=== PATIENT | female | born 1950 | race Caucasian/White ===

== ENCOUNTER → 2016-08-04 | Outpatient (CLI) | payer BC ==
[~2016-08-04] MED LIST: ALBU18002 INH; CALC600T9 PO; CLR10 PO; CZR50 PO; DICL50TA3 PO; DiphenhydrAMINE HCL 50 MG/ML VIAL ONE; FEXO1TAB49 PO; FLUT0.15 NAE; MULT-506 PO; OXYC-57 PO; SIMV10TA2 PO
--- NOTE | 2016-08-04 16:54 | DIAGNOSTIC IMAGING REPORT ---
CHEST 2 VIEWS ROUTINE CLINICAL HISTORY: Dyspnea. COMPARISON STUDY: Chest radiograph October 09, 2012. FINDINGS: Lung volumes are normal. Lungs are clear. There is no pneumothorax or pleural effusion. Cardiac size is normal. Mediastinal contours are normal. IMPRESSION: No acute cardiopulmonary findings. Electronically signed by: Marcus Hoyos M.D. 08/04/2016 4:52 PM Dictated Date/Time: 08/04/2016 4:51 PM
== END | disposition home or self-care (01) ==
LOC: C.RAD 16:14
PROVIDERS: ATTEND Nurse Practitioner Family
DX: R06.00 Dyspnea, unspecified (principal)

== ENCOUNTER → 2016-10-27 | Day surgery (SDC) | payer BC ==
[2016-10-13 10:57] VITALS: Ht 160 cm; Wt 72.7 kg
[~2016-10-27] VITALS: Ht 160 cm; Wt 72.7 kg
[~2016-10-27] MED LIST changes: +ATROPINE SULFATE 0.1 MG/ML 5ML SYR IV PRN; +BUPIVACAINE/EPINEPHRINE 0.5% MPF 1:200,000 30 ML VIAL ONE; +CEFAZOLIN 1000MG/55 ML D5W IV SCH; -CLR10 PO; +DEXAMETHASONE SOD INJ 4 MG/ML VIAL ONE; -DiphenhydrAMINE HCL 50 MG/ML VIAL ONE; +EpHEDrine SULFATE INJ 50 MG/ML AMP IV PRN; +EpHEDrine SULFATE INJ 50 MG/ML AMP ONE; +FENTANYL CITRATE INJ 50 MCG/1 ML 2 ML VIAL ONE; +HYDROmorphone INJ 2 MG/ML SYR/VIAL IV PRN; +LACTATED RINGER'S 1000ML 1,000 ML IV SCH; +LIDOCAINE HCL 2% 2 ML VIAL (20MG/ML) ONE; +MIDAZOLAM HCL 1 MG/ML 2ML VIAL ONE; +ONDANSETRON INJ 2 MG/ML 2 ML VIAL IV PRN; +ONDANSETRON INJ 2 MG/ML 2 ML VIAL ONE; +OXYCODONE/ACETAMINOPHEN 5-325 TAB PO PRN; +PHENYLEPHRINE 100MCG/ML 5ML SYR IV PRN; +PROPOFOL IV EMULSION 10 MG/ML 20 ML VIAL IV ONE; +SODIUM CHLORIDE 0.9% 1000ML 1,000 ML IV SCH; +SODIUM CHLORIDE 0.9% INJ 10 ML VIAL ONE
--- NOTE | 2016-10-27 10:59 | History & Physical Bridge - SC ---
H&P Re-Evaluation Bridge Note: I have examined the patient, reviewed the History & Physical and in the interval since the performance of the History & Physical I have noted the following changes of clinical significance: No changes noted
--- NOTE | 2016-10-27 12:15 | Discharge Instructions-SurgCtr ---
Discharge Instructions Date of Service Oct 27, 2016. Visit Reason for Visit: Right Thumb Osteoarthritis Of Cmc Joint Discharge Discharge Diagnosis / Problem: right thumb cmc joint arthritis Discharge Goals Goal(s): Decrease discomfort, Therapeutic intervention Medications Stopped Medications Name(s): diclofenac, last dose 1 week ago Activity Recommendations Activity Limitations: per Instructions/Follow-up section Anesthesia . Post Anesthesia Instructions: If you have had General Anesthesia or IV Sedation: * Do not drive today. * Resume driving when surgeon permits. * Do not make important decisions or sign legal documents today. * Call surgeon for: 1. Temperature elevations greater than 101 degrees F. 2. Uncontrollable pain. 3. Excessive bleeding. 4. Persistent nausea and vomiting. 5. Medication intolerance (nausea, vomiting or rash). * For nausea and vomiting use only clear liquids such as: tea, soda, bouillon until nausea subsides, then gradually increase diet as tolerated. * If you have any concerns or questions, call your surgeon's office. If physician is unavailable and it is an emergency, call 911 or go to the nearest emergency room. . Instructions / Follow-Up Instructions / Follow-Up MEDICATIONS: * Resume previous medications unless instructed otherwise by your surgeon. * Always take pain medication on a full stomach or with food to avoid upset stomach. * Do not drink alcohol or drive while taking narcotics. * Tylenol may be taken if narcotic not needed. SPECIAL CARE INSTRUCTIONS: __ None _x_ Keep extremity elevated and iced x 48 hours; apply ice 20-30 minutes 8-10 times/day. May remove at night. _x_ Sling __24 hrs/day __ Remove at night __ Shoulder Immobilizer __ 24 hrs/day __ Remove at night _x_ Dressing _x_ Maintain until seen in office, may shower with plastic over site __ Remove dressings in 24-48 hours and then may shower __ Cover incisions with band-aids after showering __ Do not remove steri-strips Call physician if chills or temperature rises above 102 degrees or pain unrelieved by prescribed pain medications at . . follow up in 2 weeks Diet Recommendations Home Diet: resume previous diet Procedures Procedures Performed: Right Thumb Carpometocarpal Arthroplasty Pending Studies Studies pending at discharge: no Medical Emergencies . Who to Call and When: Medical Emergencies: If at any time you feel your situation is an emergency, please call 911 immediately. . Non-Emergent Contact Non-Emergency issues call your: Surgeon . . "Provider Documentation" section prepared by Anil Cisneros.
--- NOTE | 2016-10-27 12:16 | [facility] Post Operative Brief Note ---
Immediate Operative Summary Operative Date Oct 27, 2016. Pre-Operative Diagnosis Right thumb carpometocarpal arthritis Post-Operative Diagnosis Same as preop Procedure(s) Performed Right Thumb Carpometocarpal Arthroplasty Surgeon Dr. Richards [employer] Estimator Surgeon(s) Salomon Cisneros PA-C Estimated Blood Loss 5 mL Findings Right Thumb CMC DJD Specimens None Anesthesia General Complication(s) None Disposition Recovery Room / PACU
--- NOTE | 2016-10-27 12:29 | Anesthesia Progress Nt - [facility] ---
Anesthesia Post Op Note Date & Time Oct 27, 2016 at 12:28 Vital Signs Pain Intensity: 0 Vital Signs Past 12 Hours Date Time Temp Pulse Resp B/P Pulse Ox O2 Delivery O2 Flow Rate FiO2 10/27/16 12:20 36.2 102 16 136/81 100 Mask 6 10/27/16 10:05 37 96 16 165/88 96 Room Air Notes Mental Status: alert / awake / arousable, participated in evaluation Pt Amnestic to Procedure: Yes Nausea / Vomiting: adequately controlled Pain: adequately controlled Airway Patency, RR, SpO2: stable & adequate BP & HR: stable & adequate Hydration State: stable & adequate Anesthetic Complications: no major complications apparent
[2016-10-27 13:10] VITALS: TEMP 36.6
--- NOTE | 2016-10-27 13:20 | OPERATIVE REPORT ---
DATE OF OPERATION: 10/27/2016 SURGEON: Lai Richards MD CREDIT SUPPORT COUNSELOR: JUAN A Reynaga PREOPERATIVE DIAGNOSIS: Right first CMC joint arthritis. POSTOPERATIVE DIAGNOSIS: Same. PROCEDURE PERFORMED: Right first CMC joint suspension arthroplasty. COMPLICATIONS: None. ESTIMATED BLOOD LOSS: Minimal. TOURNIQUET TIME: 20 minutes at 250 mmHg. ANESTHESIA: General. SPECIMENS: None. OPERATIVE INDICATIONS: The patient is a 66-year-old female who has had a several year history of right thumb pain and discomfort. She underwent a left thumb CMC arthroplasty about 4 years ago and has done well from this. She had been through extensive conservative treatment on that side without relief. She elected just to proceed with right CMC joint suspension arthroplasty. OPERATIVE PROCEDURE: The patient was taken to the operating room, identified and placed on the operating table in the supine position. All contact areas were appropriately padded. IV antibiotics were provided by the anesthesia team. A general anesthetic was implemented by anesthesia team. Right upper extremity tourniquet was then placed. The right arm was then prepped and draped in the usual sterile fashion. The right arm was elevated and exsanguinated with Esmarch and tourniquet was placed at 250 mmHg. About a 4-cm incision was made over the base of the first metacarpal and over the trapezium directly over the first dorsal compartment. Blunt dissection was carried out through subcutaneous tissues, down to the dorsal hand fascia. Branches of the superficial radial nerve were protected throughout the case. A longitudinal incision was then made between the abductor pollicis longus and extensor pollicis brevis tendon. This was a full-thickness incision made directly down through the joint capsule. The joint capsule was then stripped off the trapezium and the base of the first metacarpal as well. I dissected circumferentially around the trapezium. The trapezium was then sectioned in 4 pieces. We used a saw and then completed with the use of an osteotome. The trapezium was then removed in a piecemeal fashion, taking great care to protect the volar ligaments. Once this was complete, x-ray was brought in. I verified that the bone was completely gone. I then irrigated the wound and injected locally with 30 mL of 0.5% Marcaine with epinephrine. A 20 mL went into the tissues and then just irrigated with 10 additional mL. The longitudinal traction was then applied to the thumb and the capsule was then closed with 2-0 Vicryl suture in a [id number] fashion. The tourniquet was then let down for a tourniquet time of 28 minutes. Hemostasis was assured with use of electrocautery. The wound was once again irrigated. The subcutaneous tissues were then closed with 3-0 Dexon suture in a buried interrupted fashion. Skin was closed with 4-0 nylon suture in a horizontal mattress fashion. The thumb was then cleaned and dried. I then applied some longitudinal traction to the thumb and maximally extended it. I then fixed it to the remainder of the carpus with a single 1.6-mm K wire. This was done under fluoroscopy. The K wire was then cut short and Jergens pin balls placed in the end of it. A sterile dressing with Xeroform, 4 x 4s, sterile cast padding and a thumb spica splint were applied followed by a sling. The patient was then brought out of general anesthesia and transferred to the recovery room in stable condition. The patient tolerated the procedure well with no complications. All needle and sponge counts were correct at the end of the operation. I attest to the content of the Intraoperative Record and any orders documented therein. Any exceptio ns are noted below.
[2016-10-27 13:30] VITALS: BP 140/81; PULSE 95; O2SAT 98
== END | disposition home or self-care (01) ==
LOC: X.SURG 09:49
PROVIDERS: ATTEND Orthopaedic Surgery Sports Medicine
DX: M18.11 Unilateral primary osteoarthritis of first carpometacarpal joint, right hand (principal); I10 Essential (primary) hypertension; J45.909 Unspecified asthma, uncomplicated

== ENCOUNTER → 2017-08-04 | Outpatient (CLI) | payer BC ==
[~2017-08-04] MED LIST changes: -ATROPINE SULFATE 0.1 MG/ML 5ML SYR IV PRN; -BUPIVACAINE/EPINEPHRINE 0.5% MPF 1:200,000 30 ML VIAL ONE; -CEFAZOLIN 1000MG/55 ML D5W IV SCH; -DEXAMETHASONE SOD INJ 4 MG/ML VIAL ONE; -EpHEDrine SULFATE INJ 50 MG/ML AMP IV PRN; -EpHEDrine SULFATE INJ 50 MG/ML AMP ONE; -FENTANYL CITRATE INJ 50 MCG/1 ML 2 ML VIAL ONE; -HYDROmorphone INJ 2 MG/ML SYR/VIAL IV PRN; -LACTATED RINGER'S 1000ML 1,000 ML IV SCH; -LIDOCAINE HCL 2% 2 ML VIAL (20MG/ML) ONE; -MIDAZOLAM HCL 1 MG/ML 2ML VIAL ONE; -ONDANSETRON INJ 2 MG/ML 2 ML VIAL IV PRN; -ONDANSETRON INJ 2 MG/ML 2 ML VIAL ONE; -OXYC-57 PO; -OXYCODONE/ACETAMINOPHEN 5-325 TAB PO PRN; -PHENYLEPHRINE 100MCG/ML 5ML SYR IV PRN; -PROPOFOL IV EMULSION 10 MG/ML 20 ML VIAL IV ONE; -SODIUM CHLORIDE 0.9% 1000ML 1,000 ML IV SCH; -SODIUM CHLORIDE 0.9% INJ 10 ML VIAL ONE
== END | disposition home or self-care (01) ==
LOC: C.MAMM 15:17
PROVIDERS: ATTEND Nurse Practitioner Family
DX: M85.88 Other specified disorders of bone density and structure, other site (principal); M85.852 Other specified disorders of bone density and structure, left thigh; M85.851 Other specified disorders of bone density and structure, right thigh

== ENCOUNTER 2017-09-05 16:34 | Emergency (ER) | payer BC ==
[~2017-09-05] VITALS: Ht 160 cm; Wt 75.3 kg
[2017-09-05 16:39] VITALS: TEMP 37.2; Ht 160 cm; Wt 75.3 kg
[2017-09-05] MEDS ORDERED: SODIUM CHLORIDE 0.9% 500ML 500 ML IV STA (17:40)
[2017-09-05] MEDS ORDERED: ALBUTEROL 0.5% NEB SOLN 2.5 MG/0.5 ML VIAL INH STA (17:40)
--- NOTE | 2017-09-05 17:43 | EMERGENCY ROOM VISIT NOTE ---
History Report prepared by Deondre: Manuel Weaver Under the Supervision of: Dr. Elio Rush M.D. First contact with patient: 17:33 Chief Complaint: SHORTNESS OF BREATH Stated Complaint: FATIGUE, SHORT OF BREATH, COUGH Nursing Triage Summary: Pt states sent by PCP for eval of fatigue, SOB, elevated bp - mid Jul had Losartan increased from 50mg to 100mg. Reports intermittent h/a, dry mouth. States "at times" feel heart beat fast. Denies cp "other than from coughing". Intermittent dizziness/lightheaded. History of Present Illness The patient is a 66 year old female who presents to the Emergency Room with complaints of worsening fatigue over the past month. The patient states that she was recommended to come here by her primary care physician for evaluation of her fatigue. She notes that she started having cold symptoms at the end of June, which have been coming and going. She says that she has had had a waxing and waning cough with intermittent shortness of breath. The patient states that her blood pressure had been going up last month, and was having fatigue and an elevated blood pressure, so she was seen by her primary care physician and had her Losartan increased from 50 mg to 100 mg. The patient states that her fatigue has been worsening, and she still has the cough but that has gotten a bit better. She notes that her blood pressure has still been high. The patient denies any abdominal pain. She also denies being around any animals that are outside all the time. She is a non-smoker. Source of History: patient, family Onset: Over past month Position: other (global - fatigue) Timing: worsening Associated Symptoms: + cough, + SOB, No abdominal pain Note: Elevated blood pressure. Review of Systems See HPI for pertinent positives & negatives. A total of 10 systems reviewed and were otherwise negative. Past Medical & Surgical Medical Problems: (1) HTN (hypertension) Family History No pertinent family history Social History Smoking Status: Never Smoker Smokeless Tobacco Use: No Marital Status: single Occupation Status: retired Current/Historical Medications Scheduled Calcium Carbonate-Vitamin D (Calcium + D), 1 TAB PO QAM Diclofenac (Voltaren), 50 MG PO BID Losartan Potassium (Cozaar), 100 MG PO DAILY Multivitamin (Multivitamin), 1 TAB PO QAM Simvastatin (Zocor), 10 MG PO QPM Scheduled PRN Fexofenadine Hcl (Ilana Allergy), 1 TAB PO DAILY PRN for PRN Fluticasone Propionate (Nasal) (Flonase Allergy Relief), 2 SPRAY DEYSI DAILY PRN for PRN Allergies Coded Allergies: Beta Adrenergic Blockers (Unverified Adverse Reaction, Mild, HEADACHE, 07/11) Physical Exam Vital Signs Date Time Temp Pulse Resp B/P (MAP) Pulse Ox O2 Delivery O2 Flow Rate FiO2 09/05/17 20:07 81 18 168/96 98 09/05/17 19:48 90 18 164/110 96 Room Air 09/05/17 18:28 96 09/05/17 18:21 79 18 162/89 96 Room Air 09/05/17 18:15 Room Air 09/05/17 18:15 Room Air 09/05/17 16:39 37.2 122 18 163/96 97 Room Air Physical Exam GENERAL: Patient is a healthy-appearing well-nourished 66 year old female. HEAD: Normocephalic atraumatic EYES: Ocular movements intact pupils equal and react to light OROPHARYNX mucous membranes are moist no exudates present no erythema or edema present NECK: Supple no nuchal rigidity CHEST: Good equal expansion LUNGS: Clear and equal to auscultation CARDIAC: Normal S1 and S2 ABDOMEN: Soft nontender no guarding BACK: No CVA tenderness EXTREMITIES: No pain upon palpation normal muscle strength in all groups no clubbing cyanosis or edema NEURO: Patient is following commands and answering questions appropriately. Alert and oriented x3 Cranial Nerves 2-12 grossly intact Medical Decision & Procedures ER Provider Diagnostic Interpretation: Radiology results as stated below per my review and radiologist interpretation: CHEST ONE VIEW PORTABLE CLINICAL HISTORY: Pt c/o SOB history COMPARISON STUDY: 08/04/2016 FINDINGS: The bones soft tissues and hemidiaphragms are normal. The cardiomediastinal silhouette is normal. The lungs are clear. The pulmonary vasculature is normal. IMPRESSION: Negative chest. The above report was generated using voice recognition software. It may contain grammatical, syntax or spelling errors. Electronically signed by: Miller Corbin M.D. 09/05/2017 6:02 PM Dictated Date/Time: 09/05/2017 6:01 PM (CHEST FOR PE) ANGIO WITH CT DOSE: 330.87 mGy.cm HISTORY: 66 years-old Female presents with acute shortness of breath TECHNIQUE: Multiple CTA images of the chest were obtained after the intravenous administration of 95 ml Optiray 320. Coronal and sagittal MIPS were obtained from the axial data set and were submitted for review. A dose lowering technique was utilized adhering to the principles of ALARA. COMPARISON: Chest radiograph of same day, CTA 12/24/2014 FINDINGS: CTA: Heart is normal in size without pericardial effusion. Thoracic aorta is normal in both course and caliber without aneurysm or dissection. Atheromatous plaque at the origin of the left subclavian artery causes 50% luminal narrowing, image 211 series 4. The pulmonary arterial tree is opacified to level of the proximal subsegmental branches and demonstrates no focal filling defects to suggest urinary thromboembolic disease. CT CHEST: No dominant thyroid nodule identified. No pathologically enlarged lymph nodes by CT size criteria. Graft no pneumothorax or pleural effusion. Minimal dependent bibasilar atelectasis. There are no suspicious pulmonary nodules or masses identified. The central airways are patent. There is mild mucous plugging involving bronchi of the right lower lobe as seen on image 98 series 4. No acute abnormality identified within the imaged upper abdomen. Soft tissues are unremarkable. Bones appear intact. Mild multilevel endplate spurring of the spine. IMPRESSION: 1. No acute intrathoracic abnormality identified, specifically no acute aortic pathology or evidence of pulmonary thromboembolic disease. 2. 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 3. No pathologic adenopathy or focal airspace consolidation identified. The above report was generated using voice recognition software. It may contain grammatical, syntax or spelling errors. Electronically signed by: Evan Lucas M.D. 09/05/2017 7:25 PM Dictated Date/Time: 09/05/2017 7:18 PM Laboratory Results 09/05/17 18:08 Red Blood Count 4.79, Mean Corpuscular Volume 88.5, Mean Corpuscular Hemoglobin 30.9, Mean Corpuscular Hemoglobin Concent 34.9, Mean Platelet Volume 9.6, Neutrophils (%) (Auto) 55.7, Lymphocytes (%) (Auto) 33.8, Monocytes (%) (Auto) 8.4, Eosinophils (%) (Auto) 1.3, Basophils (%) (Auto) 0.4, Neutrophils # (Auto) 2.58, Lymphocytes # (Auto) 1.57, Monocytes # (Auto) 0.39, Eosinophils # (Auto) 0.06, Basophils # (Auto) 0.02 09/05/17 18:08 Test 09/05/17 18:08 09/05/17 18:13 White Blood Count 4.64 K/uL (4.8-10.8) Red Blood Count 4.79 M/uL (4.2-5.4) Hemoglobin 14.8 g/dL (12.0-16.0) Hematocrit 42.4 % (37-47) Mean Corpuscular Volume 88.5 fL (80-100) Mean Corpuscular Hemoglobin 30.9 pg (25-34) Mean Corpuscular Hemoglobin Concent 34.9 g/dl (32-36) Platelet Count 218 K/uL (130-400) Mean Platelet Volume 9.6 fL (7.4-10.4) Neutrophils (%) (Auto) 55.7 % Lymphocytes (%) (Auto) 33.8 % Monocytes (%) (Auto) 8.4 % Eosinophils (%) (Auto) 1.3 % Basophils (%) (Auto) 0.4 % Neutrophils # (Auto) 2.58 K/uL (1.4-6.5) Lymphocytes # (Auto) 1.57 K/uL (1.2-3.4) Monocytes # (Auto) 0.39 K/uL (0.11-0.59) Eosinophils # (Auto) 0.06 K/uL (0-0.5) Basophils # (Auto) 0.02 K/uL (0-0.2) RDW Standard Deviation 40.4 fL (36.4-46.3) RDW Coefficient of Variation 12.6 % (11.5-14.5) Immature Granulocyte % (Auto) 0.4 % Immature Granulocyte # (Auto) 0.02 K/uL (0.00-0.02) Anion Gap 8.0 mmol/L (3-11) Est Creatinine Clear Calc Drug Dose 58.3 ml/min Estimated GFR () 75.7 Estimated GFR (Non- 65.3 BUN/Creatinine Ratio 20.5 (10-20) Calcium Level 8.8 mg/dl (8.5-10.1) Total Bilirubin 0.6 mg/dl (0.2-1) Aspartate Amino Transf (AST/SGOT) 27 U/L (15-37) Alanine Aminotransferase (ALT/SGPT) 59 U/L (12-78) Alkaline Phosphatase 154 U/L (45-117) Total Creatine Kinase 83 U/L (26-192) Creatine Kinase MB 0.7 ng/ml (0.5-3.6) Creatine Kinase MB Ratio 0.8 (0-3.0) Troponin I < 0.015 ng/ml (0-0.045) Total Protein 7.5 gm/dl (6.4-8.2) Albumin 3.8 gm/dl (3.4-5.0) Globulin 3.7 gm/dl (2.5-4.0) Albumin/Globulin Ratio 1.0 (0.9-2) Thyroid Stimulating Hormone (TSH) 1.580 uIu/ml (0.300-4.500) Lyme Disease IgG Antibody NEG (NEG) Lyme Disease IgM Antibody NEG (NEG) Monoscreen NEG (NEG) Bedside D-Dimer > 450 ng/mlFEU (0-450) Labs reviewed by ED physician. Medications Administered Medications (Trade) Dose Ordered Sig/Tiffany Route Start Time Stop Time Status Last Admin Dose Admin Albuterol Sulfate (Ventolin 0.5% 2.5MG/0.5ML Neb) 2.5 mg NOW STAT INH 09/05/17 17:40 09/05/17 17:45 DC 09/05/17 18:16 2.5 MG Sodium Chloride 500 ml @ 999 mls/hr Q31M STAT IV 09/05/17 17:40 09/05/17 18:10 DC 09/05/17 18:20 999 MLS/HR Albuterol (Ventolin Hfa Inhaler) 2 puffs NOW STAT INH 09/05/17 19:52 09/05/17 19:53 DC 09/05/17 20:06 2 PUFFS ECG Indication: SOB/dyspnea Rate (beats per minute): 108 Rhythm: sinus tachycardia Findings: other (QT 334, QTC 447, normal axis) Change: Patient's electrocardiogram per my interpretation. ED Course 1733: Past medical records reviewed. The patient was evaluated in room C10. A complete history and physical examination was performed. 1740: Ordered NSS 500 ml @ 999 mls/hr IV, Ventolin 0.5% 2.5MG/0.5ML Neb 2.5 mg INH. 1950: Upon reexamination the patient is resting comfortably. I discussed results and treatment plan with the patient. She verbalizes agreement and understanding. The patient is ready for discharge. 1951: Ordered Ventolin Hfa Inhaler 2 puffs INH. Medical Decision Differential diagnosis: Etiologies such as metabolic, infection, hypo/hyperglycemia, electrolyte abnormalities, cardiac sources, intracerebral event, toxicologic, neurologic, as well as others were entertained. This is a 66-year-old female who presents emergency department complaining of weakness. An EKG was obtained along with CBC renal profile troponin CK-MB as well as thyroid. The patient does have an elevation in her d-dimer therefore she was sent for CAT scan of the chest. The patient was found to be somewhat hypokalemic. She was given potassium here in the emergency department. She was also given breathing treatments. I do feel that the patient is well enough to be discharged home for follow-up with her primary care physician as I do not see any acute process. Patient was in agreement with the treatment plan. Medication Reconcilliation Current Medication List: was personally reviewed by me Blood Pressure Screening Patient's blood pressure: Elevated blood pressure Blood pressure disposition: Referred to PCP Impression Primary Impression: Weakness Scribe Attestation The scribe's documentation has been prepared under my direction and personally reviewed by me in its entirety. I confirm that the note above accurately reflects all work, treatment, procedures, and medical decision making performed by me. Departure Information Dispostion Home / Self-Care Referrals Dixie Cordova, C.R.N.P. (PCP) Nba Holt, DO Patient Instructions ED Cough Chronic Cause Unkn, ED Weakness [facility], [facility] Additional Instructions Follow up with Dr Holt's office Use inhaler twice every 6 hours for cough You have been examined and treated today on an emergency basis only. This is not a substitute for, or an effort to provide, complete comprehensive medical care. It is impossible to recognize and treat all injuries or illnesses in a single emergency department visit. It is therefore important that you follow up closely with your PCP. Call as soon as possible for an appointment. Thank you for your time and consideration. I look forward to speaking with you again soon. Please don't hesitate to call us if you have any questions.
--- NOTE | 2017-09-05 18:03 | DIAGNOSTIC IMAGING REPORT ---
CHEST ONE VIEW PORTABLE CLINICAL HISTORY: Pt c/o SOB history COMPARISON STUDY: 08/04/2016 FINDINGS: The bones soft tissues and hemidiaphragms are normal. The cardiomediastinal silhouette is normal. The lungs are clear. The pulmonary vasculature is normal. IMPRESSION: Negative chest. The above report was generated using voice recognition software. It may contain grammatical, syntax or spelling errors. Electronically signed by: Miller Corbin M.D. 09/05/2017 6:02 PM Dictated Date/Time: 09/05/2017 6:01 PM
[2017-09-05] MEDS ORDERED: LOSA1TAB38 PO (18:17)
[2017-09-05 18:20] LABS: BASO % 0.4 %; BASO ABS # 0.02 K/uL (0-0.2); EOS % 1.3 %; EOS ABS # 0.06 K/uL (0-0.5); HEMATOCRIT 42.4 % (37-47); HEMOGLOBIN 14.8 g/dL (12.0-16.0); IG# 0.02 K/uL (0.00-0.02); LYMPH % 33.8 %; LYMPH ABS # 1.57 K/uL (1.2-3.4); MEAN CELL VOLUME 88.5 fL (80-100); MEAN CORPUSCULAR HEMOGLOBIN 30.9 pg (25-34); MEAN CORPUSCULAR HGB CONC 34.9 g/dl (32-36); MEAN PLATELET VOLUME 9.6 fL (7.4-10.4); MONO % 8.4 %; MONO ABS # 0.39 K/uL (0.11-0.59); NEUT % 55.7 %; NEUT ABS # 2.58 K/uL (1.4-6.5); PLATELET COUNT 218 K/uL (130-400); RED CELL DISTRIBUTION WIDTH CV 12.6 % (11.5-14.5); RED CELL DISTRIBUTION WIDTH SD 40.4 fL (36.4-46.3); WHITE BLOOD COUNT 4.64 K/uL (4.8-10.8)
[2017-09-05 18:35] LABS: ALBUMIN 3.8 gm/dl (3.4-5.0); ALT/SGPT 59 U/L (12-78); AST/SGOT 27 U/L (15-37); BLOOD UREA NITROGEN 19 mg/dl (7-18); CALCIUM 8.8 mg/dl (8.5-10.1); CARBON DIOXIDE 25 mmol/L (21-32); CREATININE 0.91 mg/dl (0.60-1.20); GLUCOSE 112 mg/dl (70-99); POTASSIUM 3.5 mmol/L (3.5-5.1); SODIUM 141 mmol/L (136-145)
[2017-09-05 18:41] LABS: MONOSPOT NEG (NEG)
[2017-09-05 18:46] LABS: ALKALINE PHOSPHATASE 154 U/L (45-117); CKMB 0.7 ng/ml (0.5-3.6); TOTAL PROTEIN 7.5 gm/dl (6.4-8.2)
[2017-09-05] MEDS ORDERED: OPTIRAY 320 IV PRN (19:00)
--- NOTE | 2017-09-05 19:26 | DIAGNOSTIC IMAGING REPORT ---
(CHEST FOR PE) ANGIO WITH CT DOSE: 330.87 mGy.cm HISTORY: 66 years-old Female presents with acute shortness of breath TECHNIQUE: Multiple CTA images of the chest were obtained after the intravenous administration of 95 ml Optiray 320. Coronal and sagittal MIPS were obtained from the axial data set and were submitted for review. A dose lowering technique was utilized adhering to the principles of ALARA. COMPARISON: Chest radiograph of same day, CTA 12/24/2014 FINDINGS: CTA: Heart is normal in size without pericardial effusion. Thoracic aorta is normal in both course and caliber without aneurysm or dissection. Atheromatous plaque at the origin of the left subclavian artery causes 50% luminal narrowing, image 211 series 4. The pulmonary arterial tree is opacified to level of the proximal subsegmental branches and demonstrates no focal filling defects to suggest urinary thromboembolic disease. CT CHEST: No dominant thyroid nodule identified. No pathologically enlarged lymph nodes by CT size criteria. Graft no pneumothorax or pleural effusion. Minimal dependent bibasilar atelectasis. There are no suspicious pulmonary nodules or masses identified. The central airways are patent. There is mild mucous plugging involving bronchi of the right lower lobe as seen on image 98 series 4. No acute abnormality identified within the imaged upper abdomen. Soft tissues are unremarkable. Bones appear intact. Mild multilevel endplate spurring of the spine. IMPRESSION: 1. No acute intrathoracic abnormality identified, specifically no acute aortic pathology or evidence of pulmonary thromboembolic disease. 2. 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 3. No pathologic adenopathy or focal airspace consolidation identified. The above report was generated using voice recognition software. It may contain grammatical, syntax or spelling errors. Electronically signed by: Evan Lucas M.D. 09/05/2017 7:25 PM Dictated Date/Time: 09/05/2017 7:18 PM
[2017-09-05] MEDS ORDERED: ALBUTEROL HFA 8 GM INHALER INH STA (19:52)
[2017-09-05 20:07] VITALS: BP 168/96; PULSE 81; O2SAT 98
[2017-09-08 16:33] LABS: ISTAT IONIZED CALCIUM 1.26 mmol/l (1.12-1.32); ISTAT POTASSIUM 3.7 mEq/L (3.3-5.0)
== END 2017-09-05 20:07 | disposition home or self-care (01) ==
LOC: C.EDB 16:34 → C.EDC 20:07
DX: R53.1 Weakness (principal); R79.1 Abnormal coagulation profile; E87.6 Hypokalemia; I10 Essential (primary) hypertension; Z88.8 Allergy status to other drugs, medicaments and biological substances

== ENCOUNTER → 2017-10-03 | Outpatient (CLI) | payer BC ==
[~2017-10-03] MED LIST changes: -ALBU18002 INH; -CZR50 PO; +LOSA1TAB38 PO
--- NOTE | 2017-10-04 15:13 | MAMMOGRAPHY REPORT ---
BILATERAL DIGITAL SCREENING MAMMOGRAM TOMOSYNTHESIS WITH CAD: 10/03/2017 CLINICAL HISTORY: Routine screening examination. TECHNIQUE: Breast tomosynthesis in addition to standard 2D mammography was performed. Current study was also evaluated with a Computer Aided Detection (CAD) system. COMPARISON: Comparison is made to exams dated: 06/08/2016 mammogram, 06/05/2015 mammogram, 09/10/2013 mammogram, 09/01/2012 mammogram, 05/27/2011 mammogram, and 05/26/2010 mammogram - [facility]. BREAST COMPOSITION: The tissue of both breasts is almost entirely fatty. FINDINGS: The parenchymal pattern is unchanged. No developing mass, architectural distortion or clus ter of suspicious microcalcifications is seen in either breast. IMPRESSION: ACR BI-RADS CATEGORY 2: BENIGN There is no mammographic evidence of malignancy. A 1 year screening mammogram is recommended. The pa tient will receive written notification of the results. Approximately 10% of breast cancers are not detected with mammography. A negative mammographic report should not delay biopsy if a clinically suggestive mass is present. Valentina Johnson M.D. ay/:10/03/2017 15:45:13 Interactive Media Director: Skylar SIERRA(R)(M), [facility] letter sent: Normal 1/2 BI-RADS Code: ACR BI-RADS Category 2: Benign
== END | disposition home or self-care (01) ==
LOC: C.MAMM 13:18
PROVIDERS: ATTEND Obstetrics & Gynecology
DX: Z12.31 Encounter for screening mammogram for malignant neoplasm of breast (principal)

== ENCOUNTER → 2017-10-03 | Outpatient (CLI) | payer BC | END | disposition home or self-care (01) | LOC: C.PAPS 13:51 | PROVIDERS: ATTEND Obstetrics & Gynecology | DX: Z12.4 Encounter for screening for malignant neoplasm of cervix (principal) ==

== ENCOUNTER → 2017-12-05 | Outpatient (CLI) | payer BC ==
[2017-12-05 12:46] LABS: ALBUMIN 3.9 gm/dl (3.4-5.0); ALT/SGPT 49 U/L (12-78); AST/SGOT 36 U/L (15-37); BLOOD UREA NITROGEN 23 mg/dl (7-18); CALCIUM 9.3 mg/dl (8.5-10.1); CARBON DIOXIDE 28 mmol/L (21-32); GLUCOSE 115 mg/dl (70-99); SODIUM 138 mmol/L (136-145); TOTAL PROTEIN 7.6 gm/dl (6.4-8.2)
[2017-12-05 12:48] LABS: ALKALINE PHOSPHATASE 107 U/L (45-117)
== END | disposition home or self-care (01) ==
LOC: C.LAB1850 09:50
PROVIDERS: ATTEND Internal Medicine Endocrinology, Diabetes & Metabolism
DX: R74.8 Abnormal levels of other serum enzymes (principal); M85.80 Other specified disorders of bone density and structure, unspecified site

== ENCOUNTER 2020-02-13 13:27 | Observation (INO) ==
--- NOTE | 2020-02-13 15:03 | XRay Report ---
XR chest 1V portable HISTORY: 69 years-old Female Chest Pain acute atypical chest pain COMPARISON: Chest radiograph and CTA chest 09/05/2017 TECHNIQUE: Portable AP view of the chest FINDINGS: Cardiomediastinal and hilar silhouettes are within normal limits. There is no pneumothorax, pleural e ffusion, airspace consolidation or overt pulmonary edema. Bones of the chest appear grossly intact. M ild convex left curvature of the midthoracic spine. IMPRESSION: No acute process. ACT 112: Negative or not required by law. The above report was generated using voice recognition software. It may contain grammatical, syntax o r spelling errors. Electronically signed by: Evan Lucas M.D. 02/13/2020 3:01 PM
[2020-02-13 15:05] LABS: Basophils # (auto) 0.02 K/uL (0-0.2); Basophils % (auto) 0.3 %; Eosinophils # (auto) 0.04 K/uL (0-0.5); Eosinophils % (auto) 0.6 %; Hematocrit (blood only) 43.5 % (37-47); Hemoglobin 15.4 g/dL (12.0-16.0); Immature Granulocytes # (auto) 0.03 K/uL (0.00-0.02); Immature Granulocytes % (auto) 0.4 %; Lymphocytes # (auto) 1.67 K/uL (1.2-3.4); Lymphocytes % (auto) 24.3 %; Mean Corpuscular Hgb Conc 35.4 g/dL (32-36); Mean Corpuscular Volume 90.4 fL (80-100); Mean Platelet Volume 9.6 fL (7.4-10.4); Monocytes # (auto) 0.59 K/uL (0.11-0.59); Monocytes % (auto) 8.6 %; Neutrophils # (auto) 4.51 K/uL (1.4-6.5); Neutrophils % (auto) 65.8 %; Platelet Count 270 K/uL (130-400); RDW Coefficient of Variation 12.9 % (11.5-14.5); Red Blood Count 4.81 M/uL (4.2-5.4); White Blood Count 6.86 K/uL (4.8-10.8)
--- NOTE | 2020-02-13 15:16 | CT Scan Report ---
CT OF THE HEAD WITHOUT CONTRAST CLINICAL HISTORY: Headache. COMPARISON STUDY: Head CT and MRI of the brain April 18, 2019. CT DOSE: 537.48 mGy.cm TECHNIQUE: Helical axial images of the head were obtained without IV contrast. Automated exposure con trol was utilized for the study. A dose lowering technique was utilized adhering to the principles o f ALARA. FINDINGS: No acute intracranial hemorrhage, midline shift or mass effect is present. White matter hyp odensity suggests small vessel disease. The ventricular system is unremarkable. The basilar cisterns are patent. No extra-axial collections are present. There are no findings to suggest acute dural sinu s thrombosis or acute territorial infarct. No significant calvarial abnormalities are present. Visual ized portions of the sinuses and mastoid air cells are clear. IMPRESSION: No acute intracranial findings. ACT 112: Negative or not required by law. Electronically signed by: Marcus Hoyos M.D. 02/13/2020 3:15 PM
[2020-02-13 15:18] LABS: D Dimer 360 ug/L FEU (0-500); Partial Thromboplastin Time 27.7 Seconds (21.0-31.0); Prothrombin Time 10.6 Seconds (9.0-12.0)
[2020-02-13 15:23] LABS: Alanine Aminotransferase 35 U/L (12-78); Albumin Level 4.1 gm/dl (3.4-5.0); Aspartate Aminotransferase 22 U/L (15-37); BUN Creatinine Ratio 15.1 (10-20); Bilirubin Direct 0.2 mg/dl (0-0.2); Blood Urea Nitrogen 17 mg/dl (7-18); Calcium 9.5 mg/dl (8.5-10.1); Carbon Dioxide 27 mmol/L (21-32); Chloride 103 mmol/L (98-107); Creatinine Clr Calc Pharmacy 43.1 ml/min; Est GFR (African American) 56.4; Est GFR (Non-African American) 48.7; Glucose 92 mg/dl (70-99); Lipase 137 U/L (73-393); Potassium 3.3 mmol/L (3.5-5.1); Sodium 139 mmol/L (136-145)
[2020-02-13 15:28] LABS: Alkaline Phosphatase 123 U/L (45-117); Bilirubin,Total 0.9 mg/dl (0.2-1); NT Pro B Type Natriuretic Pept 65 pg/ml (0-900); Total Protein 7.9 gm/dl (6.4-8.2); Troponin I < 0.015 ng/ml (0-0.045)
--- NOTE | 2020-02-13 16:00 | Emergency Department Note ---
History of Present Illness General Chief Complaint: Illness Stated Complaint: SENT BY DR Laith ROLDAN STROKE, CHEST PRESSURE Time Seen by Provider: 02/13/20 14:22 History of Present Illness Provider Complaint: chest pain Onset (ago): week(s) Onset (Weeks): 1 Duration: intermittent Onset: during exertion Pain Location: substernal Pain Radiation: none Severity: moderate Maximum Pain Intensity: 7 Current Pain Intensity: 3 Quality: + other (Pressure) Relieved By: + nothing Exacerbated By: + exertion and + other (Lying down) Context: no recent illness, no recent surgery, no recent immobilization, no recent travel, no new medications and no history of DVT/PE Associated symptoms: + other (No loss of taste or smell. No fever.); no nausea, no vomiting, no palpitations and no leg swelling Patient also reports posterior headache. Home Medications Home Medications Medication Instructions Recorded Confirmed Type fluticasone propionate [Flonase 1 spray INTRANASAL PM 03/02/19 02/13/20 History Allergy Relief] simvastatin 10 mg PO HS 03/02/19 02/13/20 History diclofenac sodium 50 mg PO TID PRN 04/18/19 02/13/20 History pantoprazole [Protonix] 40 mg PO DAILY PRN 04/18/19 02/13/20 History aspirin [Aspir-81] 81 mg PO QAM 08/14/19 02/13/20 History albuterol sulfate 90 mcg/actuation 2 inh INH .INHALE 2 PUFFS Every 4 09/29/19 02/13/20 History breath activated powder inhaler hours PRN PRN calcium carbonate-vitamin D3 600 1 cap PO DAILY cap 09/29/19 02/13/20 History mg calcium-200 unit capsule loratadine 10 mg tablet 10 mg PO DAILY PRN tab 09/29/19 02/13/20 History losartan 50 mg tablet 50 mg PO QAM tab 09/29/19 02/13/20 History multivitamin-ferrous 1 tab PO DAILY 09/29/19 02/13/20 History fumarate-folic acid 18 mg-400 mcg tablet omeprazole magnesium 20 mg 40 mg PO DAILY tab 09/29/19 02/13/20 History tablet,delayed release acetaminophen [Acetaminophen Extra 1,000 mg PO Q6H PRN 01/18/20 02/13/20 History Strength] gabapentin 400 mg PO TID 01/18/20 02/13/20 History hydrochlorothiazide 25 mg PO DAILY 02/13/20 02/13/20 History Allergies Allergy/AdvReac Type Severity Reaction Status Date / Time animal dander Allergy Mild WATERY Verified 02/13/20 14:33 EYES, SHORT OF BREATH Beta-Blockers AdvReac Mild HEADACHE Verified 02/13/20 14:33 (Beta-Adrenergic Bloc Past Med/Surg History Medical History Anxiety Asthma SEASONAL> DOESN'T USE RES. 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 Chronic back pain GERD (gastroesophageal reflux disease) HX Hyperlipidemia Hypertension Migraine HX Osteoarthritis Stenosis of left subclavian artery HX > PCP DIXIE STINSON @ [facility] REPORTS NOT TO WORRY ABOUT IT PER PATIENT Stroke-like symptoms RELATED TO BELLS PALSY > NOT STROKE Surgical History H/O cervical biopsy H/O total hysterectomy with bilateral salpingo-oophorectomy (BSO) 08/03/1988 @ [facility] by Dr Lai Templeton History of arthroscopy LEFT KNEE History of colonoscopy History of tonsillectomy Hx of cataract surgery RT/LEFT Hx of thumb surgery RT/LEFT Family History Daughter Breast cancer 2007 Mother Stroke Son Heart murmur Hypertension Sister Dyslipidemia Hypertension Family history of diabetes mellitus Father Myocardial infarction Other Cardiac disorder Social History Smoking Status: Never smoker Second Hand Exposure: No; Hx Alcohol Use: Yes Alcohol type: beer and wine Hx Substance Use: No Preferred Language: Mohawk Communication Ability: Effective Ship Boat Or Barge Mate Required: No Beliefs That Will Affect Care: None Current Living Situation: Significant Other Feels Safe at Home: Yes Dental Care, Regularly: Yes Physical Activity Frequency: Does not Exercise Seatbelt Use: always Sunscreen Use: Yes Review of Systems A total of 10 systems reviewed and were otherwise negative Physical Exam Vital Signs Vital Signs - 24 hr 02/13/20 13:30 02/13/20 14:50 02/13/20 15:30 Temperature 37.2 C Temperature Source Oral Pulse Rate 87 76 Pulse Rate from SpO2 Sensor 78 Pulse Rhythm Regular Respiratory Rate 16 20 Respiratory Effort / Characteristics Non-Labored Respiratory Depth Normal Respiratory Pattern Regular Blood Pressure 148/86 H 131/79 Blood Pressure Mean 106 86 Blood Pressure Position Sitting Pulse Oximetry 94 96 Oxygen Delivery Method Room Air Room Air Sepsis Recent Fever Within 48 Hours No Sepsis New/Unexplained Change in Mental Status N/A Sepsis Action Taken by Nursing No Action Required 02/13/20 16:00 Temperature Temperature Source Pulse Rate 72 Pulse Rate from SpO2 Sensor 73 Pulse Rhythm Respiratory Rate 18 Respiratory Effort / Characteristics Respiratory Depth Respiratory Pattern Blood Pressure 137/95 Blood Pressure Mean 105 Blood Pressure Position Pulse Oximetry 96 Oxygen Delivery Method Room Air Sepsis Recent Fever Within 48 Hours Sepsis New/Unexplained Change in Mental Status Sepsis Action Taken by Nursing Physical Exam GENERAL: She is oriented to person, place, and time. She appears well-developed and well-nourished. She does not appear distressed. HENT: Exam performed. -Head: Normocephalic and atraumatic. -Right Ear: External ear normal. No mastoid tenderness. -Left Ear: External ear normal. No mastoid tenderness. -Mouth/Throat: The oropharynx is clear and moist. No trismus in the jaw. No dental abscesses or uvula swelling. No oropharyngeal exudate or tonsillar abscesses. EYES: Conjunctivae and EOM are normal. Pupils are equal, round, and reactive to light. Right eye exhibits no discharge. Left eye exhibits no discharge. No scleral icterus. NECK: Normal range of motion. Neck supple. No JVD present. No spinous process tenderness present. No carotid bruit present. No rigidity. No tracheal deviation and normal range of motion present. No Brudzinski's sign and no Kernig's sign no tomer. CV: Normal rate, regular rhythm, normal heart sounds and intact distal pulses. There is no peripheral edema. Palpable radial pulses bue. PULM/CHEST: Effort normal and breath sounds normal. No respiratory distress. No stridor. She has no wheezes. She has no rales. -Chest Wall: She exhibits no tenderness. ABD: The abdomen is soft. Bowel sounds are normal. She has no distension. No mass is present. There is no tenderness. There is no rebound, no guarding, no Stanton's sign and no tenderness at McBurney's point. Rovsig negative MUSC/SKEL: Normal range of motion. There is no peripheral edema, tenderness or deformity. LYMPH: No cervical adenopathy. NEURO: She is alert and oriented to person, place, and time. She has normal strength. No cranial nerve deficit or sensory deficit. Coordination and gait normal. GCS eye subscore is 4. GCS verbal subscore is 5. GCS motor subscore is 6. Cerebellar tests wnl. SKIN: Skin is warm and dry. She is not diaphoretic. No COVID toes. PSYCH: She has a normal mood and affect. Behavior is normal. Judgment and thought content normal. Course Course 1422: The patient was evaluated in room C1. A complete history and physical exam was performed. Cardiac monitoring: An order was placed for continuous cardiac monitoring. The monitor shows a rate of 80 with sinus rhythm 1540: Vital signs stable. Labs and imaging within normal limits. Given the patient's age, hypertension, hyperlipidemia, moderate heart score of 4, patient will be admitted to [facility] for rule out ACS. Hospitalist Dr. Menchaca was notified. Medical Decision Making Laboratory Data Result diagrams: 02/13/20 14:50 02/13/20 14:50 Labs: Lab Results 02/13/20 02/13/20 02/13/20 Range/Units 14:50 14:50 14:50 WBC 6.86 (4.8-10.8) K/uL RBC 4.81 (4.2-5.4) M/uL Hgb 15.4 (12.0-16.0) g/dL Hct 43.5 (37-47) % MCV 90.4 (80-100) fL MCH 32.0 (25-34) pg MCHC 35.4 (32-36) g/dL RDW Std Deviation 43.0 (36.4-46.3) fL RDW Coeff of Jessica 12.9 (11.5-14.5) % Plt Count 270 (130-400) K/uL MPV 9.6 (7.4-10.4) fL Immature Gran % (Auto) 0.4 % Neut % (Auto) 65.8 % Lymph % (Auto) 24.3 % [place] % (Auto) 8.6 % Eos % (Auto) 0.6 % Baso % (Auto) 0.3 % Neut # (Auto) 4.51 (1.4-6.5) K/uL Lymph # (Auto) 1.67 (1.2-3.4) K/uL Hardee # (Auto) 0.59 (0.11-0.59) K/uL Eos # (Auto) 0.04 (0-0.5) K/uL Baso # (Auto) 0.02 (0-0.2) K/uL Immature Gran # (Auto) 0.03 H (0.00-0.02) K/uL PT 10.6 (9.0-12.0) Seconds INR 1.0 (0.9-1.1) APTT 27.7 (21.0-31.0) Seconds PTT Ratio 1.0 D-Dimer 360 (0-500) ug/L FEU Sodium 139 (136-145) mmol/L Potassium 3.3 L (3.5-5.1) mmol/L Chloride 103 (98-107) mmol/L Carbon Dioxide 27 (21-32) mmol/L Anion Gap 9.0 (3-11) BUN 17 (7-18) mg/dl Creatinine 1.14 (0.6-1.2) mg/dl Est Cr Clr Drug Dosing 43.1 ml/min Est GFR ( Amer) 56.4 Est GFR (Non-Af Amer) 48.7 BUN/Creatinine Ratio 15.1 (10-20) Glucose 92 (70-99) mg/dl Calcium 9.5 (8.5-10.1) mg/dl Total Bilirubin 0.9 (0.2-1) mg/dl Direct Bilirubin 0.2 (0-0.2) mg/dl AST 22 (15-37) U/L ALT 35 (12-78) U/L Alkaline Phosphatase 123 H (45-117) U/L Troponin I < 0.015 (0-0.045) ng/ml NT-Pro-B Natriuret Pep 65 (0-900) pg/ml Total Protein 7.9 (6.4-8.2) gm/dl Albumin 4.1 (3.4-5.0) gm/dl Lipase 137 (73-393) U/L Imaging Data Chest x-ray: Radiologist's impression: XR chest 1V portable HISTORY: 69 years-old Female Chest Pain acute atypical chest pain COMPARISON: Chest radiograph and CTA chest 09/05/2017 TECHNIQUE: Portable AP view of the chest FINDINGS: Cardiomediastinal and hilar silhouettes are within normal limits. There is no pneumothorax, pleural effusion, airspace consolidation or overt pulmonary edema. Bones of the chest appear grossly intact. Mild convex left curvature of the midthoracic spine. IMPRESSION: No acute process. ACT 112: Negative or not required by law. The above report was generated using voice recognition software. It may contain grammatical, syntax or spelling errors. Electronically signed by: Evan Lucas M.D. 02/13/2020 3:01 PM Dictated: 02/13/20 1459 Transcribed: 02/13/201458 CT scan - head: Radiologist's impression: CT OF THE HEAD WITHOUT CONTRAST CLINICAL HISTORY: Headache. COMPARISON STUDY: Head CT and MRI of the brain April 18, 2019. CT DOSE: 537.48 mGy.cm TECHNIQUE: Helical axial images of the head were obtained without IV contrast. Automated exposure control was utilized for the study. A dose lowering technique was utilized adhering to the principles of ALARA. FINDINGS: No acute intracranial hemorrhage, midline shift or mass effect is present. White matter hypodensity suggests small vessel disease. The ventricular system is unremarkable. The basilar cisterns are patent. No extra-axial collections are present. There are no findings to suggest acute dural sinus thrombosis or acute territorial infarct. No significant calvarial abnormalities are present. Visualized portions of the sinuses and mastoid air cells are clear. IMPRESSION: No acute intracranial findings. ACT 112: Negative or not required by law. Electronically signed by: Marcus Hoyos M.D. 02/13/2020 3:15 PM Dictated: 02/13/20 151 Transcribed: 02/13/201512 ECG Data Indication: chest pain Rate (beats per minute): 79 Rhythm: normal sinus Findings: no ST depression and no ST elevation Comparison ECG Date: no prior available Change: no significant change MDM Narrative Vital signs stable. Labs and imaging within normal limits. Given the patient's age, hypertension, hyperlipidemia, moderate heart score of 4, patient will be admitted to [facility] for rule out ACS. Hospitalist Dr. Menchaca was notified. Impression & Plan Chest pain Discharge Plan Visit Data Chief Complaint: Illness Stated Complaint: SENT BY DR Ozuna POSSIBLE STROKE, CHEST PRESSURE Other Complaint: Stroke/CVA Symptoms ED Provider: Noe Garcia Discharge Problem: Chest pain Patient Disposition: Being Evaluated by Hospitalist Forms Stand Alone Forms: My [facility] Prescriptions Prescriptions: No Action loratadine 10 mg tablet 10 mg PO DAILY PRN (Reason: allergy symptoms) RF: 0 losartan 50 mg tablet 50 mg PO QAM RF: 0 albuterol sulfate 90 mcg/actuation aerosol powdr breath activated 2 inh INH .INHALE 2 PUFFS Every 4 hours PRN PRN (Reason: SHORT OF BREATH) RF: 0 omeprazole magnesium 20 mg tablet,delayed release (DR/EC) 40 mg PO DAILY RF: 0 Centrum Women 18-400 mg-mcg tablet 1 tab PO DAILY RF: 0 Calcium 600 + D(3) 600 mg calcium- 200 unit capsule 1 cap PO DAILY RF: 0 simvastatin 10 mg Tablet 10 mg PO HS RF: 0 fluticasone propionate [Flonase Allergy Relief] 50 mcg/actuation [place],Suspension 1 spray INTRANASAL PM RF: 0 pantoprazole [Protonix] 40 mg tablet,delayed release (DR/EC) 40 mg PO DAILY PRN (Reason: Acid Reflux) RF: 0 diclofenac sodium 50 mg tablet,delayed release (DR/EC) 50 mg PO TID PRN (Reason: arthritis) RF: 0 aspirin [Aspir-81] 81 mg Tablet,Delayed Release (Dr/Ec) 81 mg PO QAM RF: 0 hydrochlorothiazide 25 mg tablet 25 mg PO DAILY RF: 0 gabapentin 400 mg Capsule 400 mg PO TID RF: 0 acetaminophen [Acetaminophen Extra Strength] 500 mg Tablet 1,000 mg PO Q6H PRN (Reason: Pain) RF: 0 Referrals Referrals: Dixie Stinson CRNP [Primary Care Provider] - Discharge Problem: Chest pain Qualifiers: Chest pain type: unspecified Qualified Code(s): R07.9 - Chest pain, unspecified
--- NOTE | 2020-02-13 16:05 | Electrocardiogram Report ---
Test Reason : Blood Pressure : / mmHG Vent. Rate : 079 BPM Atrial Rate : 079 BPM P-R Int : 140 ms QRS Dur : 082 ms QT Int : 370 ms P-R-T Axes : 032 011 029 degrees QTc Int : 424 ms Normal sinus rhythm Normal ECG When compared with ECG of 18-APR-2019 20:58, No significant change was found Confirmed by Jorge Quintanilla ([id number]) on 02/13/2020 4:04:50 PM Referred By: Dixie Cordova Confirmed By:Jorge Quintanilal
[2020-02-13] MEDS ORDERED: ACETAMINOPHEN 500 MG TAB PO PRN (19:01)
[2020-02-13] MEDS ORDERED: PANTOprazole 40 MG TAB PO PRN (19:01)
[2020-02-13] MEDS ORDERED: ACETAMINOPHEN 325 MG TAB PO PRN (19:01)
[2020-02-13] MEDS ORDERED: LORATADINE 10 MG TAB PO PRN (19:01)
[2020-02-13] MEDS ORDERED: ONDANSETRON INJ 2 MG/ML 2 ML VIAL IV PRN (19:01)
[2020-02-13] MEDS ORDERED: ALBUTEROL HFA 8 GM INHALER INH PRN (19:12)
[2020-02-13] MEDS ORDERED: SIMVASTATIN 10 MG TAB PO SCH (21:00)
[2020-02-13] MEDS ORDERED: FLUTICASONE PROPIONATE NA SPR 16 GM BTL SCH (21:00)
[2020-02-13] MEDS: HEPARIN SOD 5,000 UNIT/0.5 ML VIAL SQ SCH (21:24)
[2020-02-13] MEDS: GABAPENTIN 400 MG CAP PO SCH (21:24)
[2020-02-13] MEDS: DICLOFENAC SODIUM 25 MG TABDR PO PRN (21:24)
--- NOTE | 2020-02-13 21:50 | History & Physical Report ---
Date of Service February 13, 2020 Assessment & Plan (1) Chest pain: atypical symptoms, more like a pressure but happens with laying flat no symptoms on exertion but she does get dyspnea on exertion EKG normal, troponin negative cycle troponin two more sets plan for exercise stress echo tomorrow of note, CXR normal, D dimer normal (rules out PE) (2) HTN (hypertension): continue home regimen, BP stable (3) Hyperlipidemia: continue Zocor 10mg fasting lipid panel in AM (4) Weight loss: only 5 lbs could be explained by decreased PO intake, especially fluids over the past week no concerning symptoms such as night sweats check TSH in the morning (5) Dyspnea on exertion: CXR normal, lungs clear no hypoxia check exercise stress echo tomorrow no signs or symptoms of COVID, no sick contacts Admission and Anticipated Discharge Date Admission Date: February 13, 2020 History of Present Illness Chief Complaint: I have a chest heaviness Primary Care Provider: SHAYNA Romero 69 yo female with history of HTN, GERD, dyslipidemia who presents to the ED with a variety of complaints. The most troublesome to her is a sensation of chest pressure and heaviness that has been intermittent the past week. She says that the symptom occurs when she lays flat, will improve with sitting up. She says that she does not really get the heavy sensation when exerting herself. However, she has noticed that she gets more short of breath than normal. Walking up the stairs makes her really winded and this never happened in the past. No fever or cough, no loss of taste or smell. She has not had any sick contacts. She admits to eating less, she just does not have an appetite. Her bowels have also been off. A few days ago she had diarrhea and then she has been more constipated for the past three days. No nausea. She admits to a weight loss of 5 lbs the past week, no night sweats. No rash, no leg swelling, no joint pain. She did not have any intense chest pressure today, she just was getting concerned about the constellation of symptoms with the chest pressure, weight loss, change in appetite. Limited risk factors for CAD. Non-smoker, well controlled HTN and dyslipidemia. She has a family history of father with [place] and mother with stroke, so atherosclerosis runs in her family. No diabetes, not obese. In the ED, vitals were stable. CXR normal. EKG NSR with no ischemic changes, troponin negative. CBC and BMP normal. LFT normal, lipase normal. CT head normal. D dimer and BNP normal. Asked to observe patient for chest pressure symptoms. Allergies Allergy/AdvReac Type Severity Reaction Status Date / Time animal dander Allergy Mild WATERY Verified 02/13/20 14:33 EYES, SHORT OF BREATH Beta-Blockers AdvReac Mild HEADACHE Verified 02/13/20 14:33 (Beta-Adrenergic Bloc Home Medications Home Medications Medication Instructions Recorded Confirmed Type fluticasone propionate [Flonase 1 spray INTRANASAL PM 03/02/19 02/13/20 History Allergy Relief] simvastatin 10 mg PO HS 03/02/19 02/13/20 History diclofenac sodium 50 mg PO TID PRN 04/18/19 02/13/20 History pantoprazole [Protonix] 40 mg PO DAILY PRN 04/18/19 02/13/20 History aspirin [Aspir-81] 81 mg PO QAM 08/14/19 02/13/20 History albuterol sulfate 90 mcg/actuation 2 inh INH .INHALE 2 PUFFS Every 4 09/29/19 02/13/20 History breath activated powder inhaler hours PRN PRN calcium carbonate-vitamin D3 600 1 cap PO DAILY cap 09/29/19 02/13/20 History mg calcium-200 unit capsule loratadine 10 mg tablet 10 mg PO DAILY PRN tab 09/29/19 02/13/20 History losartan 50 mg tablet 50 mg PO QAM tab 09/29/19 02/13/20 History multivitamin-ferrous 1 tab PO DAILY 09/29/19 02/13/20 History fumarate-folic acid 18 mg-400 mcg tablet omeprazole magnesium 20 mg 40 mg PO DAILY tab 09/29/19 02/13/20 History tablet,delayed release acetaminophen [Acetaminophen Extra 1,000 mg PO Q6H PRN 01/18/20 02/13/20 History Strength] gabapentin 400 mg PO TID 01/18/20 02/13/20 History hydrochlorothiazide 25 mg PO DAILY 02/13/20 02/13/20 History Past Med/Surg History Medical History Anxiety Asthma SEASONAL> DOESN'T USE RES. 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 Chronic back pain GERD (gastroesophageal reflux disease) HX Hyperlipidemia Hypertension Migraine HX Osteoarthritis Stenosis of left subclavian artery HX > PCP TOM STINSON @ [facility] REPORTS NOT TO WORRY ABOUT IT PER PATIENT Stroke-like symptoms RELATED TO BELLS PALSY > NOT STROKE Surgical History H/O cervical biopsy H/O total hysterectomy with bilateral salpingo-oophorectomy (BSO) 08/03/1988 @ [facility] by Dr Lai Templeton History of arthroscopy LEFT KNEE History of colonoscopy History of tonsillectomy Hx of cataract surgery RT/LEFT Hx of thumb surgery RT/LEFT Family History Daughter Breast cancer 2008 Mother Stroke Son Heart murmur Hypertension Sister Dyslipidemia Hypertension Family history of diabetes mellitus Father Myocardial infarction Other Cardiac disorder Social History Smoking Status: Never smoker Second Hand Exposure: No; Do You Dip or Chew Tobacco: No; Tobacco Cessation Education Requested by Patient: No Hx Alcohol Use: Yes Alcohol type: beer and wine Hx Substance Use: No Preferred Language: Occitan Communication Ability: Effective Electronic Equipment Maint Tech Required: No Beliefs That Will Affect Care: None Current Living Situation: Significant Other Other Information That Helps Us Care for You: No Feels Safe at Home: Yes Safety Concerns: Feels Safe At This Time Dental Care, Regularly: Yes Physical Activity Frequency: Does not Exercise Seatbelt Use: always Sunscreen Use: Yes Review of Systems Review of Systems: All systems reviewed & are unremarkable except as noted in Subjective Physical Exam Constitutional: WD/WN, vitals as above Eyes: PERRL, conjunctivae normal, anicteric sclerae ENMT: external ear and nose normal, oropharynx normal Neck: trachea midline, no thyromegaly Respiratory: normal respiratory effort, lungs clear to auscultation Cardiovascular: RRR, no murmur, no edema Chest (Breasts): Chest: normal inspection of chest (no tenderness on palpation) Gastrointestinal (Abdomen): normal bowel sounds, soft, nontender, no hepatosplenomegaly Musculoskeletal: no cyanosis or clubbing, extremities motor strength 5/5 Skin: no rashes, warm and dry Neurologic: patellar DTR's 2+ bilat, sensation intact and PERRL, EOMI, accommodation nl, no face palsy, no dysarthria Psychiatric: A+Ox3, euthymic affect Lymphatic: no cervical or axillary lymphadenopathy Results & Data Results & Data ([facility]) Vital Signs (Past 12 Hours) Vital Signs Temp Pulse Pulse Resp BP BP Pulse Ox 02/13/20 19:59 104 H 02/13/20 19:21 36.6 C 84 18 130/80 96 02/13/20 18:30 83 24 117/75 96 02/13/20 18:00 71 17 133/69 97 02/13/20 17:30 73 20 139/75 97 02/13/20 17:17 77 18 129/64 96 02/13/20 16:30 71 23 144/81 H 97 02/13/20 16:00 72 18 137/95 96 02/13/20 15:30 76 20 131/79 96 02/13/20 13:30 37.2 C 87 16 148/86 H 94 Laboratory Results Laboratory Results - last 24 hr 02/13/20 02/13/20 02/13/20 14:50 14:50 14:50 WBC 6.86 RBC 4.81 Hgb 15.4 Hct 43.5 MCV 90.4 MCH 32.0 MCHC 35.4 RDW Std Deviation 43.0 RDW Coeff of Jessica 12.9 Plt Count 270 MPV 9.6 Immature Gran % (Auto) 0.4 Neut % (Auto) 65.8 Lymph % (Auto) 24.3 [place] % (Auto) 8.6 Eos % (Auto) 0.6 Baso % (Auto) 0.3 Neut # (Auto) 4.51 Lymph # (Auto) 1.67 [place] # (Auto) 0.59 Eos # (Auto) 0.04 Baso # (Auto) 0.02 Immature Gran # (Auto) 0.03 H PT 10.6 INR 1.0 APTT 27.7 PTT Ratio 1.0 D-Dimer 360 Sodium 139 Potassium 3.3 L Chloride 103 Carbon Dioxide 27 Anion Gap 9.0 BUN 17 Creatinine 1.14 Est Cr Clr Drug Dosing 43.1 Est GFR ( Amer) 56.4 Est GFR (Non-Af Amer) 48.7 BUN/Creatinine Ratio 15.1 Glucose 92 Calcium 9.5 Total Bilirubin 0.9 Direct Bilirubin 0.2 AST 22 ALT 35 Alkaline Phosphatase 123 H Troponin I < 0.015 NT-Pro-B Natriuret Pep 65 Total Protein 7.9 Albumin 4.1 Lipase 137 02/13/20 19:16 WBC RBC Hgb Hct MCV MCH MCHC RDW Std Deviation RDW Coeff of Jessica Plt Count MPV Immature Gran % (Auto) Neut % (Auto) Lymph % (Auto) [place] % (Auto) Eos % (Auto) Baso % (Auto) Neut # (Auto) Lymph # (Auto) [place] # (Auto) Eos # (Auto) Baso # (Auto) Immature Gran # (Auto) PT INR APTT PTT Ratio D-Dimer Sodium Potassium Chloride Carbon Dioxide Anion Gap BUN Creatinine Est Cr Clr Drug Dosing Est GFR ( Amer) Est GFR (Non-Af Amer) BUN/Creatinine Ratio Glucose Calcium Total Bilirubin Direct Bilirubin AST ALT Alkaline Phosphatase Troponin I < 0.015 NT-Pro-B Natriuret Pep Total Protein Albumin Lipase Diagnostic Findings CXR: normal CT head: no acute changes ECG Indication: chest pain Rhythm: normal sinus Findings: no acute ischemic change Code Status & VTE Plan VTE Prophylaxis Plan VTE Prophylaxis will be ordered: Yes PG Care Time/CCT Total # of Minutes Spent Total Time Spent with Patient: Total time spent is greater than 50% in coordination of care (as documented) at patient's floor/unit and/or counseling patient: Coding Level of Care Code 86277 OBS Care - Level 3 Diagnoses Chest pain R07.9 Chest pain type: unspecified HTN (hypertension) I10 Hyperlipidemia E78.5 Weight loss R63.4 Dyspnea on exertion R06.00 (1) Chest pain Chest pain type: unspecified Qualified Code(s): R07.9 - Chest pain, unspecified
[2020-02-13] MEDS ORDERED: POTASSIUM CHLORIDE 40 MEQ in SODIUM CHLORIDE 0.9% 1000ML 1,000 ML IV SCH (22:15)
[2020-02-14] MEDS: HEPARIN SOD 5,000 UNIT/0.5 ML VIAL SQ SCH (06:05)
[2020-02-14 06:08] LABS: Hematocrit (blood only) 40.8 % (37-47); Hemoglobin 14.2 g/dL (12.0-16.0); Mean Corpuscular Hemoglobin 31.8 pg (25-34); Mean Corpuscular Hgb Conc 34.8 g/dL (32-36); Mean Corpuscular Volume 91.5 fL (80-100); Mean Platelet Volume 9.5 fL (7.4-10.4); Platelet Count 236 K/uL (130-400); RDW Coefficient of Variation 13.2 % (11.5-14.5); Red Blood Count 4.46 M/uL (4.2-5.4); White Blood Count 5.46 K/uL (4.8-10.8)
[2020-02-14 06:48] LABS: BUN Creatinine Ratio 17.9 (10-20); Calcium 8.9 mg/dl (8.5-10.1); Creatinine Clr Calc Pharmacy 47.1 ml/min; Est GFR (Non-African American) 54.4; Potassium 4.1 mmol/L (3.5-5.1)
[2020-02-14] MEDS ORDERED: CEROVITE ADV FORMULA TAB PO SCH (09:00)
[2020-02-14] MEDS ORDERED: ASPIRIN 81 MG ECTAB PO SCH (09:00)
[2020-02-14] MEDS ORDERED: hydroCHLOROthiazide 25 MG TAB PO SCH (09:00)
[2020-02-14] MEDS ORDERED: PANTOprazole 40 MG TAB PO SCH (09:00)
[2020-02-14] MEDS ORDERED: LOSARTAN POTASSIUM 50 MG TAB PO SCH (09:00)
[2020-02-14] MEDS ORDERED: CALCIUM 600MG + VIT D 400 IU TAB PO SCH (09:00)
[2020-02-14] MEDS: DICLOFENAC SODIUM 25 MG TABDR PO PRN (11:35)
[2020-02-14] MEDS: GABAPENTIN 400 MG CAP PO SCH ×2 (11:35→11:41)
--- NOTE | 2020-02-14 11:58 | XCELERA ---
[id number]
--- NOTE | 2020-02-14 12:50 | Discharge Summary ---
Date of Service February 14, 2020 Admission HPI Per Admitting Provider 69 yo female with history of HTN, GERD, dyslipidemia who presents to the ED with a variety of complaints. The most troublesome to her is a sensation of chest pressure and heaviness that has been intermittent the past week. She says that the symptom occurs when she lays flat, will improve with sitting up. She says that she does not really get the heavy sensation when exerting herself. However, she has noticed that she gets more short of breath than normal. Walking up the stairs makes her really winded and this never happened in the past. No fever or cough, no loss of taste or smell. She has not had any sick contacts. She admits to eating less, she just does not have an appetite. Her bowels have also been off. A few days ago she had diarrhea and then she has been more constipated for the past three days. No nausea. She admits to a weight loss of 5 lbs the past week, no night sweats. No rash, no leg swelling, no joint pain. She did not have any intense chest pressure today, she just was getting concerned about the constellation of symptoms with the chest pressure, weight loss, change in appetite. Limited risk factors for CAD. Non-smoker, well controlled HTN and dyslipidemia. She has a family history of father with PR and mother with stroke, so atherosclerosis runs in her family. No diabetes, not obese. In the ED, vitals were stable. CXR normal. EKG NSR with no ischemic changes, t roponin negative. CBC and BMP normal. LFT normal, lipase normal. CT head normal. D dimer and BNP normal. Asked to observe patient for chest pressure symptoms. Principal Diagnosis Chest pressure and dyspnea on exertion Discharge Exam Constitutional WD/WN, vitals as above Eyes PERRL, conjunctivae normal, anicteric sclerae ENMT external ear and nose normal, oropharynx normal Neck trachea midline, no thyromegaly Respiratory normal respiratory effort, lungs clear to auscultation Cardiovascular RRR, no murmur, no edema Chest (Breasts) Chest: normal inspection of chest (no tenderness on palpation) Gastrointestinal (Abdomen) normal bowel sounds, soft, nontender, no hepatosplenomegaly Musculoskeletal no cyanosis or clubbing, extremities motor strength 5/5 Skin no rashes, warm and dry Neurologic patellar DTR's 2+ bilat, sensation intact and PERRL, EOMI, accommodation nl, no face palsy, no dysarthria Psychiatric A+Ox3, euthymic affect Lymphatic no cervical or axillary lymphadenopathy Discharge Data Allergies Allergy/AdvReac Type Severity Reaction Status Date / Time animal dander Allergy Mild WATERY Verified 02/13/20 14:33 EYES, SHORT OF BREATH Beta-Blockers AdvReac Mild HEADACHE Verified 02/13/20 14:33 (Beta-Adrenergic Bloc Consultations 02/13/20 15:38 ED Decision to Admit Stat Ordered Studies 02/13/20 14:33 CT head/brain wo con Stat Hospital Course (1) Chest pain: atypical symptoms, more like a pressure but happens with laying flat no symptoms on exertion but she does get dyspnea on exertion EKG normal, troponin negative x 3 sets exercise stress echo was normal, no signs of ischemia on EKG tracing, no symptoms echo with preserved EF, normal valves, no wall motion abnormalities of note, CXR normal, D dimer normal (rules out PE) can follow up with PCP (2) HTN (hypertension): continue home regimen, BP stable throughout (3) Hyperlipidemia: continue Zocor 10mg (4) Weight loss: only 5 lbs could be explained by decreased PO intake, especially fluids over the past week no concerning symptoms such as night sweats follow up with PCP eating well the day of discharge (5) Dyspnea on exertion: CXR normal, lungs clear no hypoxia check exercise stress echo - normal no signs or symptoms of COVID, no sick contacts can follow up with PCP Total Time Total Time Spent Total Time Spent (In Minutes): 25 minutes Total Time Includes: Examination of the Patient, Discharge Planning and Medication Reconciliation Discharge Plan Discharge Items Patient Disposition: Home - Self-Care Reason For Visit: CHEST PAIN Discharge Diagnosis: Chest pressure, dyspnea on exertion Change in appetite, change in bowels Condition on Discharge: Good Goals: follow up with PCP for complaints of weight loss, bowel and appetite changes improve nutrition and hydration Activity: Resume your previous activity Non-emergency contact: Primary Care Provider Call non-emergency contact if: you have any medication questions and your symptoms worsen Follow-up/Referrals: Dixie Cordova CRNP [Primary Care Provider] - 02/19/20 9:10 am (You have an appointment with Dixie Cordova on February 18 at 9:10. If you can not keep this appointment please call [phone]) Diet: Regular Addtl Attending Provider Instructions: Medications: no changes Chest pressure/heaviness, dyspnea on exertion normal EKG, negative troponin, normal chest x-ray resting echocardiogram is normal, healthy strong heart stress test negative for any signs of ischemia, thus no concerns for coronary disease for other issues, recommend follow up with PCP next week, they will received discharge summary Pending Studies at Discharge: No Stand-Alone Forms: [facility] [employer], Smoking Cessation Medications and DC Order Prescriptions: Continued loratadine 10 mg tablet 10 mg PO DAILY PRN (Reason: allergy symptoms) RF: 0 losartan 50 mg tablet 50 mg PO QAM RF: 0 albuterol sulfate 90 mcg/actuation aerosol powdr breath activated 2 inh INH .INHALE 2 PUFFS Every 4 hours PRN PRN (Reason: SHORT OF BREATH) RF: 0 omeprazole magnesium 20 mg tablet,delayed release (DR/EC) 40 mg PO DAILY RF: 0 Centrum Women 18-400 mg-mcg tablet 1 tab PO DAILY RF: 0 Calcium 600 + D(3) 600 mg calcium- 200 unit capsule 1 cap PO DAILY RF: 0 simvastatin 10 mg Tablet 10 mg PO HS RF: 0 fluticasone propionate [Flonase Allergy Relief] 50 mcg/actuation [place],Suspension 1 spray INTRANASAL PM RF: 0 pantoprazole [Protonix] 40 mg tablet,delayed release (DR/EC) 40 mg PO DAILY PRN (Reason: Acid Reflux) RF: 0 diclofenac sodium 50 mg tablet,delayed release (DR/EC) 50 mg PO TID PRN (Reason: arthritis) RF: 0 aspirin [Aspir-81] 81 mg Tablet,Delayed Release (Dr/Ec) 81 mg PO QAM RF: 0 hydrochlorothiazide 25 mg tablet 25 mg PO DAILY RF: 0 gabapentin 400 mg Capsule 400 mg PO TID RF: 0 acetaminophen [Acetaminophen Extra Strength] 500 mg Tablet 1,000 mg PO Q6H PRN (Reason: Pain) RF: 0 Discharge Orders: Discharge Order (Routine); Ordered 02/14/20 Ordered By: Benji Abarca Admission Data Admit Date/Time: 02/13/20 16:46 Attending Provider: Benji Abarca Admit Provider: Benji Abarca Primary Care Provider: Dixie Cordova Other Interventions: Discharge Summary Assessment (RN) Last Done: 02/14/20 13:18 DC Date/Time DO NOT enter until pt leaves facility: 02/14/20 13:57 Coding Level of Care Code 71212 OBS Care - Discharge Diagnoses Chest pain R07.9 Chest pain type: unspecified HTN (hypertension) I10 Hyperlipidemia E78.5 Weight loss R63.4 Dyspnea on exertion R06.00
--- NOTE | 2020-02-14 22:52 | Electrocardiogram Report ---
Test Reason : Blood Pressure : / mmHG Vent. Rate : 070 BPM Atrial Rate : 070 BPM P-R Int : 150 ms QRS Dur : 080 ms QT Int : 396 ms P-R-T Axes : 040 017 037 degrees QTc Int : 427 ms Normal sinus rhythm Normal ECG When compared with ECG of 13-FEB-2020 14:47, No significant change was found Confirmed by Romain Larios ([id number]) on 02/14/2020 10:52:39 PM Referred By: Dixie Cordova Confirmed By:Romain Larios
== END 2020-02-14 13:57 | disposition home or self-care (01) ==
LOC: ED 13:27 → 2N 13:27
DX: R63.8 Other symptoms and signs concerning food and fluid intake; J45.909 Unspecified asthma, uncomplicated; Z79.899 Other long term (current) drug therapy; K21.9 Gastro-esophageal reflux disease without esophagitis; R06.00 Dyspnea, unspecified; I10 Essential (primary) hypertension; Z82.3 Family history of stroke; R19.4 Change in bowel habit; Z82.49 Family history of ischemic heart disease and other diseases of the circulatory system; E78.5 Hyperlipidemia, unspecified; Z79.82 Long term (current) use of aspirin; R63.4 Abnormal weight loss; M19.90 Unspecified osteoarthritis, unspecified site; G51.0 Bell's palsy; R07.89 Other chest pain; Z88.8 Allergy status to other drugs, medicaments and biological substances